=== PATIENT | female | born 1965 | race African-American/Black ===

== ENCOUNTER 2021-04-04 04:59 | Emergency (ER) | payer MEDICAID ==
[~2021-04-04] VITALS: Ht 162.6 cm; Wt 105.0 kg
[~2021-04-04 04:59] MED LIST: IRON
[2021-04-04] MEDS ORDERED: IBUPROFEN 600MG TABLET PO ONE (06:30)
[2021-04-04 07:02] VITALS: BP 142/63
[2021-04-04] MEDS ORDERED: IBUP-2029 MT (08:05)
== END 2021-04-04 08:18 | disposition home or self-care (01) ==
LOC: ER 04:59
DX: S83.8X2A Sprain of other specified parts of left knee, initial encounter (principal); X58.XXXA Exposure to other specified factors, initial encounter; Y93.89 Activity, other specified; Y92.89 Other specified places as the place of occurrence of the external cause; Y99.8 Other external cause status; F12.10 Cannabis abuse, uncomplicated; I10 Essential (primary) hypertension; Z85.6 Personal history of leukemia
CPT/HCPCS: 73562; 99283

== ENCOUNTER 2021-06-12 09:24 | Emergency (ER) | payer MEDICAID ==
[~2021-06-12] VITALS: Ht 165.1 cm; Wt 103.0 kg
[~2021-06-12 09:24] MED LIST changes: +IBUP-2029 MT
[2021-06-12] MEDS ORDERED: HYDROCODONE/ACETAMINOPHEN 10/325MG TABLET PO ONE (11:30)
[2021-06-12 11:39] VITALS: BP 117/85
== END 2021-06-12 11:40 | disposition home or self-care (01) ==
LOC: ER 09:24
DX: Z76.0 Encounter for issue of repeat prescription (principal); G89.4 Chronic pain syndrome; I10 Essential (primary) hypertension; Z85.9 Personal history of malignant neoplasm, unspecified; F12.10 Cannabis abuse, uncomplicated
CPT/HCPCS: 99281